=== PATIENT | male | born 1975 | race Caucasian/White ===

== ENCOUNTER 2016-10-05 19:42 | Emergency (ER) ==
[2016-10-05 20:05] VITALS: BP 128/46
== END 2016-10-06 00:44 | disposition left against medical advice (07) ==
LOC: ER 19:42
DX: Z53.21 Procedure and treatment not carried out due to patient leaving prior to being seen by health care provider (principal)

== ENCOUNTER 2016-10-06 08:34 | Emergency (ER) | payer OTHER ==
[2016-10-06 08:39] VITALS: BP 146/81
[2016-10-06] MEDS ORDERED: DEXAMETHASONE SOD PHOS INJ 10 MG/1 ML VIAL IM ONE (09:20)
[2016-10-06] MEDS ORDERED: KETOROLAC TROMETHAMINE 60 MG/2 ML SDV IM ONE (09:20)
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
== END 2016-10-06 09:40 | disposition home or self-care (01) ==
LOC: ER 08:34
DX: M54.5 Low back pain (principal); F17.210 Nicotine dependence, cigarettes, uncomplicated; V49.50XA Passenger injured in collision with unspecified motor vehicles in traffic accident, initial encounter
CPT/HCPCS: 99283; 96372; J1885; J1100

== ENCOUNTER 2017-02-23 09:47 | Emergency (ER) | payer OTHER ==
--- NOTE | 2017-02-23 10:25 | ER Document Report ---
HPI - HPI Pain Level: 5 Notes: Patient is a 41-year-old male presents the ED complaining bilateral lower back pain without known injury 1 day. Patient states that the pain radiates into his legs over his thighs and occ into his feet b/l. Patient describes the pain is sharp. He denies any surgical history to his back or any recent procedures. Patient states that sitting and ambulating increases pain. He has not had any [id number] meds for symptoms. Denies any drug allergies or significant past medical history otherwise. Patient admits to smoking but denies any other illicit drug use. Denies any headache, fever, URI, sore throat , chest pain, palpitations, syncope, cough, shortness of breath, wheeze, dyspnea , abdominal pain, nausea/vomiting/diarrhea, urinary retention, dysuria, hematuria, loss of control of bowel or bladder, numbness/tingling, saddle anesthesia, muscle paralysis/weakness, or rash. - ROS Notes: REVIEW OF SYSTEMS: CONSTITUTIONAL : Denies fever, chills, or sweats. Denies recent illness. EENT: Denies eye, ear, throat, or mouth pain or symptoms. Denies nasal or sinus congestion or discharge. Denies throat, tongue, or mouth swelling or difficulty swallowing. CARDIOVASCULAR: Denies chest pain. Denies palpitations or racing or irregular heart beat. Denies ankle edema. RESPIRATORY: Denies cough, cold, or chest congestion. Denies shortness of breath, difficulty breathing, or wheezing. GASTROINTESTINAL: Denies abdominal pain or distention. Denies nausea, vomiting , or diarrhea. Denies blood in vomitus, stools, or per rectum. Denies black, tarry stools. Denies constipation. GENITOURINARY: Denies difficulty urinating, painful urination, burning, frequency, blood in urine, or discharge. MUSCULOSKELETAL: see hpi SKIN: Denies rash, lesions or sores. NEUROLOGICAL: Denies confusion or altered mental status. Denies passing out or loss of consciousness. Denies dizziness or lightheadedness. Denies headache. Denies weakness or paralysis or loss of use of either side. Denies problems with gait or speech. Denies sensory loss, numbness, or tingling. ALL OTHER SYSTEMS REVIEWED AND NEGATIVE. Dictation was performed using [employer] recognition software - DERM Skin Color: Normal Past Medical History - Social History Smoking Status: Current Every Day Smoker Family History: Arthritis, CVA, Hypertension, Malignancy Renal/ Medical History: Denies: Hx Peritoneal Dialysis Musculoskeltal Medical History: Reports Hx Musculoskeletal Deformity, Reports Hx Musculoskeletal Trauma Past Surgical History: Reports: Hx Inguinal Hernia - Immunizations Immunizations up to date: Yes Hx Diphtheria, Pertussis, Tetanus Vaccination: Yes Vertical Provider Document - CONSTITUTIONAL Agree With Documented VS: Yes Notes: PHYSICAL EXAMINATION: GENERAL: Well-appearing, well-nourished and in no acute distress. LUNGS: Breath sounds clear to auscultation bilaterally and equal. No wheezes rales or rhonchi. HEART: Regular rate and rhythm without murmurs, rubs, gallops. ABDOMEN: Soft, nontender, nondistended abdomen. No guarding, no rebound. No masses appreciated. Normal bowel sounds present. No CVA tenderness bilaterally. No pulsatile mass Musculoskeletal: LE's b/l: FROM to passive/active. Strength 5+/5. SLR negative b/l. Back: FROM to passive/active. Strength 5+/5. + tenderness to the b/l L-spine and midline. + mild spasming noted. Extremities: No cyanosis, clubbing, or edema b/l. Peripheral pulses 2+. Capillary refill less than 3 seconds. NEUROLOGICAL: Normal speech, ataxic gait. Normal sensory, motor exams PSYCH: Normal mood, normal affect. SKIN: Warm, Dry, normal turgor, no rashes or lesions noted. - INFECTION CONTROL TRAVEL OUTSIDE OF THE [place] IN LAST 30 DAYS: No - RESPIRATORY O2 Sat by Pulse Oximetry: 98 Course - Re-evaluation Re-evalutation: 02/23/17 11:35 Patient is an afebrile, well-hydrated, 41-year-old male who presents the ED with acute low back pain, suspect muscle strain/sprain. Vitals are stable. PE otherwise unremarkable for any focal neurological deficits. Lumbar x-ray was unremarkable for any acute pathology. Decadron 10 mg given IM today. I will send him home with a prescription for naproxen, Voltaren gel, and baclofen to take as needed/directed. Low suspicion for any meningitis, fracture, expanding/ ruptured AAA, cauda equina syndrome, epidural mass lesion/abscess, herniated disc causing severe spinal stenosis, or other systemic infection at this time. Patient is aware that his condition can change from initial presentation and that he needs monitor symptoms closely for any acute changes. Recheck/ establish with PCM this week. Consider consult with orthopedics/physical therapy. Return to the ED with any worsening/concerning symptoms otherwise as reviewed in discharge. Patient is in agreement. - Vital Signs Vital signs: Temp Pulse Resp BP Pulse Ox 98.2 F 68 20 124/72 98 02/23/17 09:53 02/23/17 09:53 02/23/17 09:53 02/23/17 09:53 02/23/17 09:53 Discharge - Discharge Clinical Impression: Low back pain Qualifiers: Chronicity: acute Back pain laterality: bilateral Sciatica presence: unspecified whether sciatica present Qualified Code(s): M54.5 - Low back pain Condition: Stable Disposition: HOME, SELF-CARE Instructions: Ice Packs ([facility]), Low Back Pain ([facility]), Muscle Relaxers ([facility]), Muscle Strain ([facility]), Stretching Exercises for the Back ([facility]), Warm Packs ([facility]) Additional Instructions: Rest, Ice, Compression, Elevation Tylenol/ibuprofen as needed Light stretches daily Take meds as directed Strength exercises as able Moist heat and massage may help F/u with your PCP in 2-3 days for a recheck Consider consult(s) with Orthopedics/physical therapy for ongoing/worsening symptoms Return to the ED with any worsening symptoms and/or development of fever, headache, chest pain, palpitations, syncope, shortness of breath, trouble breathing, abdominal pain, n/v/d, blood in stool/urine, loss of control of bowel /bladder, urinary retention, muscle weakness/paralysis, saddle anesthesia, numbness/tingling, or other worsening symptoms that are concerning to you. Prescriptions: Baclofen [Baclofen 10 mg Tablet] 5 mg PO BID PRN #10 tablet PRN Reason: Diclofenac Sodium [Voltaren] 4 gm TP QID PRN #100 gel..gm. PRN Reason: Naproxen 500 mg PO BID PRN #30 tablet PRN Reason: Forms: Smoking Cessation Education Referrals: [facility] [Provider Group] - Follow up as needed [facility] [Provider Group] - Follow up as needed [facility] [Provider Group] - Follow up as needed
[2017-02-23] MEDS ORDERED: DEXAMETHASONE SOD PHOS INJ 10 MG/1 ML VIAL IM ONE (10:28)
--- NOTE | 2017-02-23 11:18 | RADIOLOGY REPORT (SQ) ---
EXAM DESCRIPTION: L SPINE WHOLE COMPLETED DATE/TIME: 02/23/2017 10:41 am REASON FOR STUDY: low back pain COMPARISON: None. NUMBER OF VIEWS: Five views including obliques. TECHNIQUE: AP, lateral, oblique, and sacral radiographic images acquired of the lumbar spine. LIMITATIONS: None. FINDINGS: MINERALIZATION: Normal. SEGMENTATION: Normal. No transitional anatomy. ALIGNMENT: Mild levoscoliosis centered at L2. VERTEBRAE: Maintained height. No fracture or worrisome bone lesion. DISCS: Disc spaces are narrowed L4-5 and at L5-S1. POSTERIOR ELEMENTS: Hypertrophic facet changes are present L4-S1. HARDWARE: None in the spine. PARASPINAL SOFT TISSUES: Normal. PELVIS: Intact as visualized. No fractures or worrisome bone lesions. SI joints intact. OTHER: No other significant finding. IMPRESSION: Degenerative disc disease, facet arthropathy, and mild scoliosis. TECHNICAL DOCUMENTATION: JOB ID: [id number] [facility] Center- All Rights Reserved
[2017-02-23 12:02] VITALS: BP 126/72
== END 2017-02-23 11:56 | disposition home or self-care (01) ==
LOC: ER 09:47
DX: M54.5 Low back pain (principal); M79.604 Pain in right leg; M79.605 Pain in left leg; F17.200 Nicotine dependence, unspecified, uncomplicated
CPT/HCPCS: 99283; 96372; 72110; J1100

== ENCOUNTER 2018-02-20 11:56 | Emergency (ER) | payer SELFPAY ==
[2018-02-20 12:11] VITALS: BP 131/76
--- NOTE | 2018-02-20 12:11 | ER Document Report ---
HPI - HPI Patient complains to provider of: Low back pain Onset: Yesterday - Last night Pain Level: 5 Context: 42-year-old male felt a sharp pain in his low back while he was getting out of bed last night. He has had this in the past and takes 1 or 2 weeks to go away. No fever or chills. No urinary symptoms. No saddle anesthesia or radiculopathy. No IV drug use. No history cancer. Associated Symptoms: None Exacerbated by: Movement Relieved by: Denies Similar symptoms previously: Yes Recently seen / treated by doctor: No - ROS ROS below otherwise negative: Yes Systems Reviewed and Negative: Yes All other systems reviewed and negative Past Medical History - General Information source: Patient - Social History Smoking Status: Unknown if Ever Smoked Lives with: Family Family History: Arthritis, CVA, Hypertension, Malignancy Renal/ Medical History: Denies: Hx Peritoneal Dialysis Musculoskeletal Medical History: Reports Hx Musculoskeletal Deformity, Reports Hx Musculoskeletal Trauma Past Surgical History: Reports: Hx Inguinal Hernia - Immunizations Immunizations up to date: Yes Hx Diphtheria, Pertussis, Tetanus Vaccination: Yes Vertical Provider Document - CONSTITUTIONAL Agree With Documented VS: Yes Exam Limitations: No Limitations - INFECTION CONTROL TRAVEL OUTSIDE OF THE [place] IN LAST 30 DAYS: No - NECK Neck: Supple - RESPIRATORY Respiratory: Breath Sounds Normal, No Respiratory Distress - CARDIOVASCULAR Cardiovascular: Regular Rate, Regular Rhythm - MUSCULOSKELETAL/EXTREMETIES Musculoskeletal/Extremeties: MAEW, FROM, Tender - Bilateral lumbar paraspinal muscles mild. negative: Edema, Eccymosis - NEURO Level of Consciousness: Awake, Alert Motor/Sensory: No Motor Deficit, No Sensory Deficit Deep Tendon Reflexes: 2+ - Bilateral ankle and patellar - DERM Integumentary: No Rash Discharge - Discharge Clinical Impression: Low back strain Qualifiers: Encounter type: initial encounter Qualified Code(s): S39.012A - Strain of muscle, fascia and tendon of lower back, initial encounter Condition: Good Disposition: HOME, SELF-CARE Instructions: Acetaminophen, Ibuprofen (General) ([facility]), Low Back Pain ([facility]), Muscle Relaxers ([facility]), Muscle Strain ([facility]), Toradol Injection ([facility]), Warm Packs ([facility]) Additional Instructions: Tylenol up to 4000 mg a day for pain Motrin up to 800 mg 3 times a day for for inflammation Flexeril 10 mg as muscle relaxer up to 3 times a day Warm compress Return to the emergency room for any worsening of the symptoms Prescriptions: Ibuprofen [Motrin 800 mg Tablet] 800 mg PO Q8HP PRN #30 tablet PRN Reason: Cyclobenzaprine HCl [Flexeril 10 Mg Tablet] 10 mg PO TIDP PRN #20 tablet PRN Reason: Forms: Return to Work
[2018-02-20] MEDS ORDERED: KETOROLAC TROMETHAMINE 60 MG/2 ML SDV IM ONE (12:25)
[2018-02-20] MEDS ORDERED: ACETAMINOPHEN 325 MG TABLET PO ONE (12:25)
== END 2018-02-20 12:43 | disposition home or self-care (01) ==
LOC: ER 11:56
DX: S39.012A Strain of muscle, fascia and tendon of lower back, initial encounter (principal); X50.1XXA Overexertion from prolonged static or awkward postures, initial encounter; Y93.89 Activity, other specified
CPT/HCPCS: 99283; 96372; J1885

== ENCOUNTER 2019-03-28 09:03 | Emergency (ER) | payer SELFPAY ==
[2019-03-28 10:06] LABS: ABSOLUTE BASOPHILS # (AUTO) 0.1 10^3/uL (0.0-0.2); ABSOLUTE EOSINOPHILS # (AUTO) 0.1 10^3/uL (0.0-0.6); ABSOLUTE LYMPHOCYTES (AUTO) 1.2 10^3/uL (0.5-4.7); ABSOLUTE MONOCYTES (AUTO) 0.6 10^3/uL (0.1-1.4); ABSOLUTE NEUT (AUTO) 10.3 10^3/uL (1.7-8.2); BASOPHILS % (AUTO) 0.5 % (0-2); EOSINOPHILS % (AUTO) 0.5 % (0-6); HEMOGLOBIN 13.5 g/dL (13.5-17.0); LYMPHOCYTES % (AUTO) 10.1 % (13-45); MEAN CORPUSCULAR HEMOGLOBIN 30.7 pg (27.0-33.4); MEAN CORPUSCULAR HGB CONC 33.8 g/dL (32.0-36.0); MEAN CORPUSCULAR VOLUME 91 fl (80-97); PLATELET COUNT 230 10^3/uL (150-450); RED CELL DISTRIBUTION WIDTH 13.2 % (11.5-14.0); SEGMENTED NEUTROPHILS % (AUTO) 83.9 % (42-78); TOTAL CELLS COUNTED % (AUTO) 100 %; WHITE BLOOD COUNT 12.2 10^3/uL (4.0-10.5)
[2019-03-28 10:18] LABS: APPEARANCE,URINE CLEAR; BILIRUBIN,URINE NEGATIVE (NEGATIVE); COLOR,URINE YELLOW; GLUCOSE, URINE NEGATIVE (NEGATIVE); KETONES,URINE NEGATIVE (NEGATIVE); LEUKOCYTE ESTERASE,URINE NEGATIVE (NEGATIVE); NITRITE,URINE NEGATIVE (NEGATIVE); PROTEIN,URINE NEGATIVE (NEGATIVE); URINE SPECIFIC GRAVITY 1.026; UROBILINOGEN,URINE NEGATIVE mg/dL (<2.0)
[2019-03-28 10:30] LABS: ALBUMIN 4.4 g/dL (3.5-5.0); ALKALINE PHOSPHATASE 69 U/L (38-126); ANION GAP 9 (5-19); ASPARTATE AMINO TRANSFERASE 28 U/L (17-59); BILIRUBIN,DIRECT 0.2 mg/dL (0.0-0.4); BILIRUBIN,TOTAL 0.3 mg/dL (0.2-1.3); BLOOD UREA NITROGEN 18 mg/dL (7-20); CALCIUM 9.5 mg/dL (8.4-10.2); CARBON DIOXIDE 26 mmol/L (22-30); CHLORIDE 106 mmol/L (98-107); GLUCOSE 107 mg/dL (75-110); POTASSIUM 4.8 mmol/L (3.6-5.0); TOTAL PROTEIN 7.1 g/dL (6.3-8.2)
[2019-03-28] MEDS ORDERED: MORPHINE SULFATE 10 MG/ML INJ IV ONE ×2 (10:32→12:19)
[2019-03-28] MEDS ORDERED: ONDANSETRON HCL INJ/PF 4 MG/2 ML SDV IV ONE (10:32)
--- NOTE | 2019-03-28 10:38 | ER Document Report ---
ED General - General Chief Complaint: Flank Pain Stated Complaint: FLANK PAIN Time Seen by Provider: 03/28/19 09:53 TRAVEL OUTSIDE OF THE [place] IN LAST 30 DAYS: No - HPI Notes: 44-year-old male with right flank and right lower quadrant pain. Sudden onset this morning, remote history of renal colic but this feels "different". Complains of right lower quadrant pain and right flank pain. Primarily right flank rating towards right lower quadrant testicle. Moderate intensity, no gross hematuria. No fever. Nausea but no vomiting. No other modifying factors, no other associated symptoms, no other provocative or palliative factors. Sudden onset. No worse with motion. - Related Data Allergies/Adverse Reactions: No Known Allergies Allergy (Verified 03/28/19 09:30) Past Medical History - Social History Smoking Status: Current Every Day Smoker Chew tobacco use (# tins/day): Yes Frequency of alcohol use: None Drug Abuse: None Family History: Arthritis, CVA, Hypertension, Malignancy Patient has suicidal ideation: No Patient has homicidal ideation: No - Medical History Notes: Prior renal colic Renal/ Medical History: Reports: Hx Kidney Stones. Denies: Hx Peritoneal Dialysis Musculoskeletal Medical History: Reports Hx Musculoskeletal Deformity, Reports Hx Musculoskeletal Trauma Past Surgical History: Reports: Hx Inguinal Hernia - Immunizations Immunizations up to date: Yes Hx Diphtheria, Pertussis, Tetanus Vaccination: Yes Review of Systems - Review of Systems Notes: Review of systems as in the history of present illness, otherwise negative x 10 systems. Physical Exam - Vital signs Vitals: Temp Pulse Resp BP Pulse Ox 97.5 F 57 L 24 H 142/101 H 100 03/28/19 09:07 03/28/19 09:07 03/28/19 09:07 03/28/19 09:07 03/28/19 09:07 - Notes Notes: General: Well developed . HEENT: Normocephalic, atraumatic. Pupils equal round reactive to light. No JVD. Chest: No trauma. Respiratory: Good air exchange, normal excursion. Cardiac: Regular rhythm. No murmurs or gallops. Abdomen: Soft, benign. Nondistended. Nontender. Back: No asymmetry or gross abnormality. Right CVAT Motor: Grossly normal power and tone. Neurologic: Alert, nonfocal. Cranial nerves II-12 are intact. Sensation intact. Vascular: Well perfused. Normal peripheral pulses. Skin: No petechiae or purpura. Course - Re-evaluation Re-evalutation: 03/28/19 10:37 Appearing male with likely renal colic, will check chemistries, UA, renal ultrasound, treat with IV opiates, antiemetics, reevaluate. 03/28/19 12:20 Labs reviewed, urinalysis consistent with hematuria, chemistries unremarkable. Ultrasound is consistent with likely right-sided renal/ureteral obstruction stone. Patient feels much better after analgesics, discharged home with prescription for analgesics, outpatient urology follow-up., Antiemetics. - Vital Signs Vital signs: Temp Pulse Resp BP Pulse Ox 97.5 F 57 L 24 H 142/101 H 100 03/28/19 09:07 03/28/19 09:07 03/28/19 09:07 03/28/19 09:07 03/28/19 09:07 - Laboratory Result Diagrams: 03/28/19 09:45 03/28/19 09:45 Laboratory results interpreted by me: 03/28/19 03/28/19 09:45 09:45 WBC 12.2 H Lymph % (Auto) 10.1 L Absolute Neuts (auto) 10.3 H Seg Neutrophils % 83.9 H Urine Blood SMALL H Discharge - Discharge Clinical Impression: Renal colic on right side Condition: Stable Disposition: HOME, SELF-CARE Instructions: Kidney Stone ([facility]) Prescriptions: Hydrocodone/Acetaminophen [Vicodin 5-300 mg Tablet] 1 each PO Q6 3 Days #12 tablet Ondansetron [Zofran Odt 4 mg Tablet] 1 - 2 tab PO Q4H PRN #15 tab.rapdis PRN Reason: For Nausea/Vomiting Referrals: BARI ADAMS MD [NO LOCAL MD] - Follow up as needed
--- NOTE | 2019-03-28 11:43 | RADIOLOGY REPORT (SQ) ---
EXAM DESCRIPTION: U/S RETR[employer] LTD COMPLETED DATE/TIME: 03/28/2019 11:32 am REASON FOR STUDY: sEVERE RIGHT FLANK PAIN, EVAL FOR STONE COMPARISON: None. TECHNIQUE: Dynamic and static grayscale images acquired of the kidneys and bladder and recorded on P ACS. Additional selected color Doppler and spectral images recorded. LIMITATIONS: None. FINDINGS: RIGHT KIDNEY: Normal size. Normal echogenicity. No solid or suspicious masses. Mild right hydronephrosis. No calcifications. LEFT KIDNEY: Normal size. Normal echogenicity. No solid or suspicious masses. No hydronephrosi s. No calcifications. BLADDER: No masses. The right ureteral jet is nonvisualized. The left jet is visualized. OTHER FINDINGS: No other significant finding. IMPRESSION: There is mild right hydronephrosis. The right ureteral jet is nonvisualized. Findings are suspicious for distally obstructing calculus. No calculi are visualized by ultrasound. Recommen d CT to further evaluate. TECHNICAL DOCUMENTATION: JOB ID: [id number] [employer]- All Rights Reserved Reading location - IP/workstation name: [email or web address]
[2019-03-28 12:37] VITALS: BP 145/90
== END 2019-03-28 12:59 | disposition home or self-care (01) ==
LOC: ER 09:03
DX: N23 Unspecified renal colic (principal); F17.220 Nicotine dependence, chewing tobacco, uncomplicated; Z87.442 Personal history of urinary calculi
CPT/HCPCS: 36415; 83690; 85025; 80053; 81001; 76775; J2270; J2405

== ENCOUNTER 2020-05-25 08:14 | Emergency (ER) | payer BC, OTHER ==
[2020-05-25 08:40] VITALS: BP 113/73
--- NOTE | 2020-05-25 09:47 | ER Document Report ---
ED General - General Chief Complaint: Headache >24 hrs old Stated Complaint: HEADACHE Time Seen by Provider: 05/25/20 09:46 Primary Care Provider: MELISSA COREY [Primary Care Provider] - Follow up as needed TRAVEL OUTSIDE OF THE [place] IN LAST 30 DAYS: No - HPI Notes: 45-year-old male presents with a headache. Patient has had a headache located towards the back of his head for the past 4 to 5 days, states that it started around Thanksgiving. He states that he woke up and had a headache, however over the past couple of days it has not totally resolved. It is throbbing in nature and feels like a pushing sensation on his ears. States that going to bed makes the pain 10 times worse. He denies any known injury. He has been taking Goody powder, Excedrin and Tylenol. He states that the Goody powder does ease off the pain some. He is having some nausea, no vomiting or abdominal pain. He denies fever, chills, vision changes, sore throat, cough or shortness of breath. No known Covid exposures. - Related Data Allergies/Adverse Reactions: No Known Allergies Allergy (Verified 05/25/20 09:22) Past Medical History - General Information source: Patient - Social History Smoking Status: Current Every Day Smoker Chew tobacco use (# tins/day): No Frequency of alcohol use: Occasional Drug Abuse: None Family History: Arthritis, CVA, Hypertension, Malignancy Patient has homicidal ideation: No Renal/ Medical History: Reports: Hx Kidney Stones. Denies: Hx Peritoneal Apoorva lysis Musculoskeletal Medical History: Reports Hx Musculoskeletal Deformity, Reports Hx Musculoskeletal Trauma Past Surgical History: Reports: Hx Inguinal Hernia - Immunizations Immunizations up to date: Yes Hx Diphtheria, Pertussis, Tetanus Vaccination: Yes Review of Systems - Review of Systems Constitutional: denies: Chills, Fever EENT: denies: Blurred vision, Double vision, Nose congestion, Throat pain Cardiovascular: No symptoms reported Respiratory: No symptoms reported Gastrointestinal: Nausea. denies: Abdominal pain, Vomiting Genitourinary: No symptoms reported Male Genitourinary: No symptoms reported Musculoskeletal: Muscle pain Skin: No symptoms reported Hematologic/Lymphatic: No symptoms reported Neurological/Psychological: Headaches. denies: Weakness Physical Exam - Vital signs Vitals: Temp Pulse Resp BP Pulse Ox 98.1 F 60 16 113/73 100 05/25/20 08:39 05/25/20 08:39 05/25/20 08:39 05/25/20 08:39 05/25/20 08:39 - General General appearance: Appears well, Alert In distress: None - HEENT Head: Normocephalic, Atraumatic Extraocular movements intact: Yes Pupils: PERRL Nerve palsy: No Visual baker normal: Yes External canal: Cerumen impaction - Left Tympanic membrane: No: Bulging, Injected Mucous membranes: Moist Pharynx: No: Erythema, Exudate Neck: Supple, Other - There is bilateral muscle hypertonicity and tenderness to the occipital musculature and upper trapezius. Full range of motion of neck. No: Lymphadenopathy, Meningismus - Respiratory Breath sounds: Normal - Cardiovascular Rhythm: Regular Heart sounds: Normal auscultation - Abdominal Tenderness: Nontender - Extremities General upper extremity: Normal ROM General lower extremity: Normal ROM - Neurological Neuro grossly intact: Yes Cognition: Normal Orientation: AAOx4 Speech: Normal Cranial nerves: Normal Cerebellar coordination: Normal Motor strength normal: LUE, RUE, LLE, RLE - Psychological Associated symptoms: Normal affect - Skin Skin Temperature: Warm Course - Re-evaluation Re-evalutation: 45-year-old male with posterior headache for the past 4 to 5 days. On exam he is afebrile, hemodynamically stable, neurologically intact. He does have some muscular hypertonicity and tenderness. His exam is not currently consistent with nuchal rigidity or meningismus. I discussed with patient that pain is likely muscular in origin, will start with Toradol and Flexeril for symptoms. Presentation at this time is not consistent with meningitis. Really no other symptoms to suggest acute viral illness. Given his nonfocal exam, would not suspect intracranial pathology at this time. 05/25/20 11:22 Into reevaluate patient, he reports he is feeling much better and symptoms have resolved. We discussed continuing use of ibuprofen and Flexeril. Return precautions given, stable at time of discharge. - Vital Signs Vital signs: Temp Pulse Resp BP Pulse Ox 98.1 F 60 16 113/73 100 05/25/20 08:39 05/25/20 08:39 05/25/20 08:39 05/25/20 08:39 05/25/20 08:39 Discharge - Discharge Clinical Impression: Muscle strain Disposition: HOME, SELF-CARE Additional Instructions: Continue use of ibuprofen and Flexeril for symptoms. Use caution when using Flexeril, do not drive or operate heavy machinery as it can cause you to have some wooziness. Return to the emergency department for fever, changes in vision, worsening of symptoms or any other symptoms that are concerning. Prescriptions: Cyclobenzaprine HCl [Flexeril 10 mg Tablet] 10 mg PO TIDP PRN #15 tab PRN Reason: Ibuprofen [Ibu] 800 mg PO TID PRN #60 tablet PRN Reason: Referrals: LOCALMD,NO [Primary Care Provider] - Follow up as needed
[2020-05-25] MEDS ORDERED: KETOROLAC TROMETHAMINE 60 MG/2 ML SDV IM ONE (10:00)
[2020-05-25] MEDS ORDERED: CYCLOBENZAPRINE HCL 10 MG TABLET PO ONE (10:00)
[2020-05-25] MEDS ORDERED: ONDANSETRON 4 MG TAB.RAPDIS PO ONE (10:00)
== END 2020-05-25 11:59 | disposition home or self-care (01) ==
LOC: ER 08:14
DX: S29.012A Strain of muscle and tendon of back wall of thorax, initial encounter (principal); R11.0 Nausea; R51.9 Headache, unspecified; X58.XXXA Exposure to other specified factors, initial encounter; F17.200 Nicotine dependence, unspecified, uncomplicated
CPT/HCPCS: 99284; 96372; J1885; S0119